=== PATIENT | female | born 1950 | race Caucasian/White ===

== ENCOUNTER 2018-09-30 06:46 | Day surgery (SDC) | payer OTHER ==
[~2018-09-30 06:46] MED LIST: ASPIR 8181 MG; COZAAR50 MG; PRILOSEC2.5 MG; ZANTAC300 MG
[2018-09-30] MEDS ORDERED: MACROBID 100 M100 MG PO (09:24)
[2018-09-30] MEDS ORDERED: ULTRACET PO (09:25)
== END 2018-09-30 11:55 | disposition home or self-care (01) ==
LOC: CIR.AMB 06:46
DX: N81.3 Complete uterovaginal prolapse (principal)